=== PATIENT | female | born 1990 | race Caucasian/White ===

== ENCOUNTER 2024-08-05 17:28 | Emergency (ER) | payer OTHER ==
[2024-08-05 17:35] VITALS: TEMP 98.5; BMI 29.8
[2024-08-05] MEDS ORDERED: ACETAMINOPHEN INJECTION 100 ML ONE (18:26)
[2024-08-05 18:31] LABS: BASO % 0.4 % (0-2.0); EOS % 0.9 % (0-4.5); HEMATOCRIT 39.1 % (32.4-45.2); HEMOGLOBIN 13.3 GM/dL (10.7-15.3); LYMPH % 36.9 % (8-40); MCH 31.9 pg (25.7-33.7); MEAN CELL VOLUME 93.6 fl (80-96); MEAN PLT VOLUME 9.1 fl (7.5-11.1); MONO % 5.5 % (3.8-10.2); NEUT % 56.3 % (42.8-82.8); PLATELET COUNT 222 10^3/uL (134-434); RBC 4.17 M/mm3 (3.60-5.2); RDW 14.7 % (11.6-15.6); WHITE BLOOD COUNT 6.2 K/mm3 (4.0-10.0)
[2024-08-05] MEDS: ACETAMINOPHEN 1000 MG/100 ML BAG IVPB ONE (18:31)
[2024-08-05] MEDS: SODIUM CHLORIDE 1,000 ML IV STA (18:31)
[2024-08-05 18:49] LABS: CHLORIDE 103 mmol/L (98-107); SODIUM 124 mmol/L (136-145)
[2024-08-05 18:52] LABS: ALBUMIN 3.6 g/dl (3.4-5.0); BLOOD UREA NITROGEN 6.9 mg/dL (7-18); CALCIUM 8.4 mg/dL (8.5-10.1); CO2 22 mmol/L (21-32); GLUCOSE,RANDOM 78 mg/dL (74-106)
[2024-08-05 18:55] LABS: ANION GAP -2 mmol/L (4-13); CREATININE 0.5 mg/dL (0.55-1.3); POTASSIUM > 10.0 mmol/L (3.5-5.1)
[2024-08-05 18:56] LABS: TOT PROT 8.9 g/dl (6.4-8.2)
[2024-08-05 18:57] LABS: ALK PHOS 102 U/L (45-117)
[2024-08-05 19:01] LABS: SGOT/AST 157 U/L (15-37); SGPT/ALT 28 U/L (13-61)
[2024-08-05 19:49] LABS: HIV INTERPRETATION NEGATIVE (NEGATIVE)
[2024-08-05 20:23] LABS: CHLORIDE 107 mmol/L (98-107); SODIUM 135 mmol/L (136-145)
[2024-08-05 20:24] LABS: BLOOD UREA NITROGEN 5.8 mg/dL (7-18); CO2 24 mmol/L (21-32)
[2024-08-05 20:25] LABS: CALCIUM 7.9 mg/dL (8.5-10.1)
[2024-08-05 20:26] LABS: ANION GAP 4 mmol/L (4-13); GLUCOSE,RANDOM 92 mg/dL (74-106); POTASSIUM 7.1 mmol/L (3.5-5.1)
[2024-08-05 20:28] LABS: CREATININE 0.5 mg/dL (0.55-1.3)
[2024-08-05 21:15] LABS: HCG,QUALITATIVE URINE Positive
[2024-08-05 21:17] LABS: EPI CELLS 15 /uL (0-25.1); HYALINE CASTS 0 /uL (0-3.1); PH,URINE 6.5 (5.0-8.0); URINE APPEARANCE CLEAR; URINE BACTERIA 528 /uL (0-1359); URINE BILIRUBIN NEGATIVE (NEGATIVE); URINE COLOR YELLOW; URINE GLUCOSE (UA) NEGATIVE (NEGATIVE); URINE KETONE TRACE (NEGATIVE); URINE LEUK ESTERASE TRACE (NEGATIVE); URINE NITRITE NEGATIVE (NEGATIVE); URINE PROTEIN NEGATIVE (NEGATIVE); URINE RBC 62 /uL (0-23.9); URINE UROBILINOGEN 0.2 mg/dL (0.2-1.0); URINE WBC 40 /uL (0-25.8)
[2024-08-05 21:39] LABS: POTASSIUM 3.9 mmol/L (3.5-5.1)
[2024-08-05 21:42] LABS: ALBUMIN 3.4 g/dl (3.4-5.0); BLOOD UREA NITROGEN 5.2 mg/dL (7-18); CALCIUM 8.1 mg/dL (8.5-10.1)
[2024-08-05 21:45] LABS: CREATININE 0.4 mg/dL (0.55-1.3)
[2024-08-05 21:47] LABS: BILIRUBIN,TOTAL 0.3 mg/dL (0.2-1)
[2024-08-05 21:49] LABS: TOT PROT 6.9 g/dl (6.4-8.2)
[2024-08-05 22:06] VITALS: BP 107/67; PULSE 72; RESP 19
== END 2024-08-05 23:16 | disposition home or self-care (01) ==
LOC: JER 17:28
PROC: 3E033NZ Introduction of Analgesics, Hypnotics, Sedatives into Peripheral Vein, Percutaneous Approach (ICD-10-PCS; principal; 2024-08-05)
PROC: 3E0337Z Introduction of Electrolytic and Water Balance Substance into Peripheral Vein, Percutaneous Approach (ICD-10-PCS; 2024-08-05)
DX: O20.9 Hemorrhage in early pregnancy, unspecified (principal); O99.891 Other specified diseases and conditions complicating pregnancy; R51.9 Headache, unspecified; Z3A.01 Less than 8 weeks gestation of pregnancy
CPT/HCPCS: 36415; 76817-TC; 80048; 80053; 81003; 84702; 84703; 85025; 86803; 86850; 86900; 86901; 87086; 87389; 99285-25; J0131

== ENCOUNTER 2024-10-01 23:00 | Emergency (ER) | payer OTHER ==
[2024-10-01 23:10] VITALS: BP 101/46; PULSE 85; RESP 18; TEMP 99; BMI 29.9
[2024-10-02] MEDS ORDERED: ACETAMINOPHEN INJECTION 100 ML ONE (00:02)
[2024-10-02] MEDS: ACETAMINOPHEN 1000 MG/100 ML BAG IVPB ONE (00:06)
[2024-10-02 00:56] LABS: ABSOLUTE IMMATURE GRANULOCYTES 0.03 x10^3/uL (0.0-0.031); BASOPHILS # 0.02 x10^3/uL (0.01-0.08); EOSINOPHIL % 1.1 % (0.7-5.8); EOSINOPHILS # 0.09 x10^3/uL (0.04-0.36); HEMATOCRIT 32.7 % (34.1-44.9); HEMOGLOBIN 11.3 g/dL (11.2-15.7); MCHC 34.6 g/dl (32.2-35.5); MEAN CELL VOLUME 91.3 fl (79.4-94.8); MEAN PLT VOLUME 11.2 fl (9.4-12.3); MONOCYTE # 0.41 x10^3/uL (0.24-0.86); MONOCYTE % 5.2 % (4.7-12.5); PLATELET COUNT 266 x10^3/uL (182-369); RDW 12.5 % (12.1-16.8)
[2024-10-02 01:06] LABS: EPI CELLS 34 /uL (0-25.1); HYALINE CASTS 0 /uL (0-3.1); PH,URINE 6.5 (5.0-8.0); URINE APPEARANCE CLOUDY; URINE BACTERIA 4050 /uL (0-1359); URINE BILIRUBIN NEGATIVE (NEGATIVE); URINE COLOR YELLOW; URINE GLUCOSE (UA) NEGATIVE (NEGATIVE); URINE KETONE TRACE (NEGATIVE); URINE LEUK ESTERASE 3+ (NEGATIVE); URINE NITRITE NEGATIVE (NEGATIVE); URINE PROTEIN NEGATIVE (NEGATIVE); URINE RBC 10 /uL (0-23.9); URINE UROBILINOGEN 0.2 mg/dL (0.2-1.0); URINE WBC 181 /uL (0-25.8)
[2024-10-02 01:19] LABS: CALCIUM 9.5 mg/dL (8.5-10.1)
[2024-10-02 01:20] LABS: ALBUMIN 3.1 g/dl (3.4-5.0); BLOOD UREA NITROGEN 4.7 mg/dL (7-18); MAGNESIUM 1.8 mg/dL (1.8-2.4)
[2024-10-02 01:23] LABS: CREATININE 0.4 mg/dL (0.55-1.3)
[2024-10-02 01:25] LABS: BILIRUBIN,TOTAL 0.2 mg/dL (0.2-1)
[2024-10-02 01:27] LABS: TOT PROT 6.8 g/dl (6.4-8.2)
== END 2024-10-02 02:08 | disposition home or self-care (01) ==
LOC: JER 23:00
PROC: 3E033NZ Introduction of Analgesics, Hypnotics, Sedatives into Peripheral Vein, Percutaneous Approach (ICD-10-PCS; principal; 2024-10-01)
DX: O26.892 Other specified pregnancy related conditions, second trimester (principal); M54.50 Low back pain, unspecified; R10.30 Lower abdominal pain, unspecified; O23.92 Unspecified genitourinary tract infection in pregnancy, second trimester; Z3A.15 15 weeks gestation of pregnancy
CPT/HCPCS: 36415; 76815-TC; 80053; 81003; 83735; 84702; 85025; 87077; 87086; 87491; 87591; 99285-25; J0131